=== PATIENT | female | born 2000 | race Two or more races ===

== ENCOUNTER 2019-05-14 20:46 | Emergency (ER) | payer SELFPAY ==
[~2019-05-14] VITALS: Ht 162.6 cm; Wt 61.2 kg
[2019-05-14 21:23] VITALS: BP 120/71
[2019-05-15] MEDS ORDERED: BACLOFEN 10 MG TAB PO ONE
[2019-05-15] MEDS ORDERED: HYDROcodone-ACET 5/325MG TAB PO ONE
== END 2019-05-15 00:25 | disposition home or self-care (01) ==
LOC: ER 20:47
DX: M62.838 Other muscle spasm (principal); R51 Headache; V49.49XA Driver injured in collision with other motor vehicles in traffic accident, initial encounter; Y93.89 Activity, other specified; Y99.8 Other external cause status; Y92.410 Unspecified street and highway as the place of occurrence of the external cause
CPT/HCPCS: 70450; 70486; 73030

== ENCOUNTER → 2020-05-09 | Emergency (ER) | payer OTHER ==
[~2020-05-09] VITALS: Ht 162.6 cm; Wt 59.0 kg
[2020-05-09 15:00] VITALS: BP 111/69
== END | disposition home or self-care (01) ==
LOC: ER 12:03
DX: J45.901 Unspecified asthma with (acute) exacerbation (principal)
CPT/HCPCS: 71045

== ENCOUNTER 2022-03-05 10:47 | Emergency (ER) | payer OTHER ==
[~2022-03-05] VITALS: Ht 162.6 cm; Wt 56.2 kg
[2022-03-05 10:48] VITALS: BP 123/80
[2022-03-05 11:17] LABS: Basophils # (auto) 0 10 ^3/uL (0-0.2); Basophils % (auto) 0.3 % (0.0-2.0); Eosinophils # (auto) 0 10 ^3/uL (0-0.8); Eosinophils % (auto) 0.3 % (0.0-7.0); Hemoglobin 13.9 g/dL (12.2-16.2); Lymphocytes # (auto) 0.8 10 ^3/uL (0.4-5.4); Lymphocytes % (auto) 14.3 % (10.0-50.0); Mean Corpuscular Hemoglobin 32.5 pg (28.0-32.0); Mean Corpuscular Hgb Conc. 33.8 g/dL (32.0-36.0); Mean Corpuscular Volume 96.2 fL (80.0-100.0); Monocytes # (auto) 0.3 10 ^3/uL (0-1.3); Monocytes % (auto) 5.7 % (0.0-12.0); Neutrophils # (auto) 4.2 10 ^3/uL (1.6-8.6); Neutrophils % (auto) 79.4 % (37.0-80.0); Nucleated Red Blood Cells % 0.2 %; Red Blood Cells 4.26 10^6/uL (4.0-5.20); Red Cell Distribution Width 12.8 % (11.8-14.3); White Blood Cell 5.3 10^3/uL (4.4-10.8)
[2022-03-05 11:34] LABS: Albumin 3.6 g/dL (3.4-5.0); Calcium 9.6 mg/dL (8.5-10.1); Potassium 3.7 mmol/L (3.5-5.1)
[2022-03-05 11:39] LABS: Bilirubin, Total 0.4 mg/dL (0.2-1.0); Total Protein 7.6 g/dL (6.4-8.2)
[2022-03-05 11:39] LABS: Urine Bacteria MANY /hpf (None Seen); Urine Blood Negative /uL (Negative); Urine Hyaline Cast FEW /lpf (0 - 2); Urine Specific Gravity 1.002 (1.001-1.035); Urine WBC 3 /hpf (0 - 5)
[2022-03-05] MEDS ORDERED: NAPR500T31 PO (12:14)
== END 2022-03-05 12:17 | disposition home or self-care (01) ==
LOC: ER 10:47
DX: R07.89 Other chest pain (principal); J45.909 Unspecified asthma, uncomplicated
CPT/HCPCS: 36415; 80053; 81001; 84484; 85025; 93005